=== PATIENT | female | born 1945 | race Caucasian/White ===

== ENCOUNTER → 2016-11-23 | Day surgery (SDC) | payer MEDICARE, OTHER ==
[~2016-11-23] VITALS: Ht 177.8 cm; Wt 138.8 kg
[~2016-11-23] MED LIST: ACTOS30 MG PO; AMARYL4 MG PO; ASPIRIN LO-DOSE81 MG PO; FISH OIL300 MG PO; FUROSEMIDE20 MG PO; HAIR, SKIN & N1 EAC2 PO; INDERAL40 MG PO; LEVOTHROID(SYN75 MCG PO; LIPITOR20 M1 PO; NORVASC5 MG PO; PRILOSEC20 MG PO; SERTRALINE HCL100 MG PO; TRULICITY0.75 MG/0. SUB-Q; VITAMIN D1000 UNIT PO
--- NOTE | ~2016-11-23 | OR ---
PATIENT'S NAME: JEFFRY MCLAUGHLIN [facility] AGE: 71 Y [address] ROOM: [place] [id number] LOCATION: [facility] ADMIT DATE: 11/23/2016 OR/Procedure Report DISCHARGE DATE: FAMILY PHYSICIAN: Sammy eHrnandez MD ATTENDING PHYSICIAN: Sammy Hernandez SURGEON: Gretta Alvarez MD [facility] TENDER: DATE OF PROCEDURE: 11/23/2016 PROCEDURES: Colonoscopy. INDICATIONS: Screening. MEDICATIONS: Please see anesthesiology record for details. CONSENT: The risks/benefits/alternatives were discussed and the patient or her power of regulatory attorney expressed understanding and agreed to proceed. Informed consent was obtained and placed on the chart. Time-out was completed prior to starting the procedure. PROCEDURE: Patient was placed in the left lateral decubitus position. One lead EKG monitoring was used along with intermittent blood pressure monitoring and pulse oximetry. The above medications were given and titrated to response. Once adequate sedation was completed, rectal exam was performed. The colonoscope was then passed through the rectum, into the sigmoid colon. The scope was then passed through the descending, transverse and ascending colon. The scope was then passed into the cecum. The cecum was identified by the ileocecal valve and appendiceal orifice. The scope was then withdrawn. On withdrawal, the mucosa of the colon was examined. In the rectum, retroflexion was completed. The scope was then withdrawn from the patient. The patient tolerated the procedure well. There were no complications. SUMMARY OF FINDINGS: 1. Cecal polyp, about 5 mm sessile removed using snare with cautery. 2. Sigmoid colon polyps two polyps. One was 3 mm. One was 5 mm removed using snare without and with cautery respectively. 3. Diverticulosis seen throughout the colon mainly in the sigmoid. 4. Internal hemorrhoids small nonbleeding. 5. External hemorrhoid and skin tag present. ASSESSMENT AND PLAN: Screening colonoscopy: The patient had 3 polyps removed on exam. If these are all tubular adenomas, then I would recommend repeat colonoscopy in 3 years. If only one or two of the polyps were tubular adenomas, then we will get it a 5 years. PATIENT'S NAME: JEFFRY MCLAUGHLIN [facility] AGE: 71 Y [address] ROOM: [place] [address] LOCATION: [facility] ADMIT DATE: 11/23/2016 OR/Procedure Report DISCHARGE DATE: FAMILY PHYSICIAN: Sammy Hernandez MD ATTENDING PHYSICIAN: Sammy Hernandez J KIMBERLY ALVAREZ MD JRT/modl /[id number] d: 11/23/16 1518 t: 11/26/16 1428, OPERATIVE SUMMARY
== END ==
LOC: GPOC 11-16 15:00 → GEND 08:42 → GPOC 15:00
PROC: 0DBH8ZX Excision of Cecum, Via Natural or Artificial Opening Endoscopic, Diagnostic (ICD-10-PCS; principal; 2016-11-23)
PROC: 0DBN8ZX Excision of Sigmoid Colon, Via Natural or Artificial Opening Endoscopic, Diagnostic (ICD-10-PCS; 2016-11-23)
DX: Z12.11 Encounter for screening for malignant neoplasm of colon (principal); D12.0 Benign neoplasm of cecum; D12.5 Benign neoplasm of sigmoid colon; K64.4 Residual hemorrhoidal skin tags; K64.8 Other hemorrhoids; I10 Essential (primary) hypertension; K21.9 Gastro-esophageal reflux disease without esophagitis; E11.9 Type 2 diabetes mellitus without complications; Z79.82 Long term (current) use of aspirin; Z79.899 Other long term (current) drug therapy; Z88.6 Allergy status to analgesic agent; Z88.8 Allergy status to other drugs, medicaments and biological substances; K57.30 Diverticulosis of large intestine without perforation or abscess without bleeding
CPT/HCPCS: J7030